=== PATIENT | male | born 1980 | race Caucasian/White ===

== ENCOUNTER → 2023-05-04 | Outpatient (CLI) | payer BC, SELFPAY ==
--- NOTE | 2023-05-04 15:47 | CT_ITS ---
INDICATION: HEMOPTYSIS X 1 WK EXAMINATION: CT CHEST WITH CONTRAST - CT Chest W/ Contrast Injection TECHNIQUE: Helically acquired images were obtained of the chest following IV contrast. A radiation dose optimization technique was used for this scan. IV Contrast dosage and agent: COMPARISON: None. FINDINGS: LUNGS, PLEURA AND LARGE AIRWAYS: There is patchy area of groundglass opacity in the left lower lobe. No pleural effusion or thickening. No pneumothorax. THYROID: No thyroid lesions. HEART AND PERICARDIUM: Heart is upper normal size. There is no appreciable coronary artery calcification. No pericardial effusion. VESSELS: There is borderline aneurysmal dilatation of the proximal ascending aorta measuring approximately 4 to 4.2 cm No aortic dissection. No obvious central pulmonary embolism although this study was not performed with the pulmonary embolism protocol. MEDIASTINUM AND OBEY: No mediastinal or hilar adenopathy. Esophagus is unremarkable. No hiatal hernia. UPPER ABDOMEN: Mild nonspecific fatty infiltrated liver.. BONES: No suspicious lytic or blastic abnormality. CT/Chest WITH Contrast IMPRESSION: Nonspecific patchy groundglass opacity in left lower lobe may be consistent with pneumonia or nonspecific alveolitis Borderline aneurysmal dilatation of the proximal ascending aorta Electronically Signed: Alex Clark MD at 16:25 EST Reading Location ID and State: [facility] / [place] Tel , Service support ,
== END | disposition home or self-care (01) ==
PROVIDERS: Referring Provider Otolaryngology Otolaryngology/Facial Plastic Surgery; Visit Provider Otolaryngology Otolaryngology/Facial Plastic Surgery
DX: R04.2 Hemoptysis (principal)
CPT/HCPCS: 71260; Q9967; A4216